=== PATIENT | male | born 1995 | race African-American/Black ===

== ENCOUNTER 2018-03-04 15:59 | Emergency (ER) | payer SELFPAY ==
[~2018-03-04] VITALS: Ht 198.1 cm; Wt 72.6 kg
[2018-03-04] MEDS ORDERED: ACETAMINOPHEN 325 MG TAB PO ONE (17:15)
[2018-03-04] MEDS ORDERED: HYDROcodone-ACET 10/325MG TAB PO ONE (19:00)
[2018-03-04] MEDS ORDERED: KETOROLAC TROMETH 60MG/2ML VIAL IM ONE (19:00)
[2018-03-04] MEDS ORDERED: SODIUM CHLORIDE 0.9% 2,000 ML IV ONE (19:36)
[2018-03-04] MEDS ORDERED: cefTRIAXone 1GM/10ml IVPUSH 10 ML IV ONE (20:00)
[2018-03-04 20:02] LABS: Mean Corpuscular Hemoglobin 16.3 pg (28.0-32.0)
[2018-03-04 20:06] LABS: Hematocrit 32.9 % (41.0-53.0); Mean Corpuscular Hgb Conc. 27.5 g/dL (32.0-36.0); Mean Corpuscular Volume 59.5 fL (80.0-100.0); Platelet Count (auto) 90 10^3/uL (140-450); Red Blood Cells 5.52 10^6/uL (4.5-5.90); White Blood Cell 13.2 10^3/uL (4.4-10.8)
[2018-03-04 20:15] LABS: INR 1.05 (0.9-1.15); Prothrombin Time 11.2 sec (9.27-12.13)
[2018-03-04 20:22] LABS: Red Cell Distribution Width 32.5 % (11.8-14.3)
[2018-03-04 20:24] LABS: BUN/Creatinine Ratio 8.9; Band Neutrophils % (manual) 0; Basophils % (manual) 0 (0.0-2.0); Bilirubin, Total 1.1 mg/dL (0.2-1.0); Blast Cells 0; Calcium 8.9 mg/dL (8.5-10.1); Metamyelocytes % 0; Myelocytes % 0; Potassium 3.4 mmol/L (3.5-5.1); Promyelocytes % 0; Reactive Lymphocytes 0; Total Protein 9.8 g/dL (6.4-8.2)
[2018-03-04 20:36] LABS: Eosinophils % (manual) 1 (0-7); Lymphocytes % (manual) 13 (10.0-50.0); Monocytes % (manual) 7 (0-12)
[2018-03-04 21:37] VITALS: BP 133/63
[2018-03-04] MEDS ORDERED: HYDROcodone-ACET 5/325MG TAB ONE (22:01)
[2018-03-04] MEDS ORDERED: HYDROcodone-ACET 5/325MG TAB PO ONE (22:15)
== END 2018-03-04 22:03 | disposition short-term general hospital (02) ==
LOC: ER 16:03
DX: J93.9 Pneumothorax, unspecified (principal); Y08.89XA Assault by other specified means, initial encounter; Y93.89 Activity, other specified; Y99.8 Other external cause status; Y92.89 Other specified places as the place of occurrence of the external cause
CPT/HCPCS: 36415; 70450; 70486; 71046; 71101; 72125; 73130; 80053; 85007; 85027; 85610; 85730; 96372; 96374; 99285; J1885; J7030